=== PATIENT | male | born 1955 | race Caucasian/White ===

== ENCOUNTER 2017-12-23 09:59 | Emergency (ER) | payer OTHER ==
[~2017-12-23] VITALS: Ht 172.7 cm; Wt 80.0 kg
[~2017-12-23 09:59] MED LIST: ACCOLATE10 MG; ADULT ASA81 MG OR; ADULT ASPIRIN E81 MG PO; ASPIRIN EC81 MG PO; ASPIRIN LOW DOS81 M2 PO; BACTRIM DS1 TAB PO; CIPRO XR500 MG PO; CIPROFLOXACN250 MG PO; CIPROFLOXACN500 MG PO; DILAUDID 2MG2 MG/TA1 PO; DILAUDID2 MG PO; FINASTERIDE5 MG PO; FLEXERIL PO; FLONASE NASAL50 MCG; HYDROCO/APAP1 TA9 PO; LIPITOR40 M1 PO; LISINOPRIL10 MG PO; LISINOPRIL20 MG PO; LOPRESSOR25 M1 PO; LOPRESSOR25 MG PO; METOPROL TAR25 MG PO; METRONIDAZOL500 MG PO; MIRALAX3350 N1 PO; MULTI VIT PO; NAPROSYN500 MG PO; OMEPRAZOLE20 MG PO; PRINIVIL10 MG OR; RAPAFLO8 MG PO; SIMVASTATIN40 MG PO; ULTRAM50 M1 PO
[2017-12-23 10:38] LABS: HEMATOCRIT 42.7 % (39.0-50.0); HEMOGLOBIN 14.3 g/dl (14.0-18.0); IMMATURE GRANULOCYTES 0.3 % (0.0-1.0); MEAN CELL VOLUME 90.7 fL CALC (80.0-100.0); MEAN CORPUSCULAR HGB 30.4 pG CALC (26.0-32.0); MEAN CORPUSCULAR HGB CONC 33.5 g/L CALC (32.0-36.0); NEUT# 6.27 thou/uL (1.82-7.42); RED BLOOD COUNT 4.71 mill/uL (4.70-6.10)
[2017-12-23 10:45] LABS: ALBUMIN 4.4 g/dL (3.2-5.0); ALKALINE PHOSPHATASE 66 u/l (38-126); ANION GAP 13 (6-22 (CALC)); BILIRUBIN, TOTAL 1.4 mg/dL (0.0-1.4); BUN 12 mg/dL (8-23); BUN/CREATININE RATIO 13 (12-20 (CALC)); CARBON DIOXIDE 28 mmol/l (22-30); CHLORIDE 99 mmol/l (95-108); CREATININE 0.9 mg/dL (0.7-1.3); GFR > 60 ML/MIN (>=60 (CALC)); GFR FOR AFR.AMER. > 60 ML/MIN (>=60 (CALC)); POTASSIUM 3.8 mmol/l (3.5-5.1); SGOT/AST 23 u/l (19-48); SGPT/ALT 43 u/l (11-66); SODIUM 136 mmol/l (137-146); TOTAL PROTEIN 7.1 g/dL (6.3-8.2)
[2017-12-23 13:37] VITALS: BP 116/78
== END 2017-12-23 13:37 | disposition home or self-care (01) | DRG 310 ==
LOC: ED 09:59
PROVIDERS: Emergency Medicine
DX: R00.2 Palpitations (principal); F17.210 Nicotine dependence, cigarettes, uncomplicated

== ENCOUNTER → 2018-09-02 | Outpatient (REF) | payer OTHER | END | disposition home or self-care (01) | DRG 642 | LOC: LAB 10:04 | PROVIDERS: ATTEND Nurse Practitioner Family | DX: E78.49 Other hyperlipidemia (principal); I10 Essential (primary) hypertension ==

== ENCOUNTER 2020-11-08 15:49 | Emergency (ER) | payer SELFPAY ==
[~2020-11-08 15:49] MED LIST changes: +ALLEGRA60 MG PO; +PEPCID20 MG PO
[2020-11-08 17:18] VITALS: BP 128/79
== END 2020-11-08 17:18 | disposition home or self-care (01) | DRG 151 ==
LOC: ED 15:49
DX: R04.0 Epistaxis (principal); J32.9 Chronic sinusitis, unspecified; I10 Essential (primary) hypertension; K21.9 Gastro-esophageal reflux disease without esophagitis

== ENCOUNTER 2022-02-28 01:42 | Emergency (ER) | payer MEDICARE ==
[~2022-02-28] VITALS: Ht 172.7 cm; Wt 89.5 kg
[2022-02-28] VITALS (9 sets, daily range): BP systolic 129–156; BP diastolic 90–105
[2022-02-28 02:06] LABS: HEMATOCRIT 42.6 % (39.0-50.0); HEMOGLOBIN 14.5 g/dl (14.0-18.0); IMMATURE GRANULOCYTES 0.1 % (0.0-5.0); MEAN CELL VOLUME 88.6 fL CALC (80.0-100.0); MEAN CORPUSCULAR HGB 30.1 pG CALC (26.0-32.0); NEUT# 4.48 thou/uL (1.82-7.42); RED BLOOD COUNT 4.81 mill/uL (4.70-6.10)
[2022-02-28 02:07] LABS: URINE BILIRUBIN - DIPSTICK NEGATIVE (NEGATIVE); URINE BLOOD DIPSTICK NEGATIVE (NEGATIVE); URINE COLOR YELLOW; URINE GLUCOSE - DIPSTICK NEGATIVE (NEGATIVE); URINE KETONE NEGATIVE (NEGATIVE); URINE PH 6.5 (4.5-8.0); URINE PROTEIN - DIPSTICK NEGATIVE (NEG-TRACE); URINE UROBILINOGEN - DIPSTICK 0.2 E.U./dL (0.2)
[2022-02-28 02:08] LABS: URINE LEUK ESTERASE MODERATE (NEGATIVE); URINE NITRITE - DIPSTICK NEGATIVE (Negative)
[2022-02-28 02:15] LABS: URINE BACTERIA FEW hpf; URINE SQUAMOUS EPITHELIAL CELL RARE EPI/hpf (0-FEW); URINE WBC 20-50 WBC/hpf (0-5)
[2022-02-28 02:18] LABS: ALBUMIN 4.6 g/dL (3.2-5.0); ALKALINE PHOSPHATASE 73 u/l (38-126); ANION GAP 15 (6-22 (CALC)); BILIRUBIN, TOTAL 1.1 mg/dL (0.0-1.4); BUN 15 mg/dL (8-23); BUN/CREATININE RATIO 13 (12-20 (CALC)); CARBON DIOXIDE 29 mmol/l (22-30); CHLORIDE 100 mmol/l (95-108); CPK 77 u/l (52-200); CREATININE 1.2 mg/dL (0.7-1.3); GFR FOR AFR.AMER. > 60 ML/MIN (>=60 (CALC)); GFR OTHER RACES > 60 ML/MIN (>=60 (CALC)); MAGNESIUM 1.7 mg/dL (1.6-2.3); POTASSIUM 3.8 mmol/l (3.5-5.1); SGOT/AST 28 u/l (19-48); SODIUM 139 mmol/l (137-146); TOTAL PROTEIN 7.7 g/dL (6.3-8.2)
[2022-02-28 02:30] LABS: MYOGLOBIN 31 ng/mL (0 - 121)
[2022-02-28 02:49] LABS: TSH, 3RD GENERATION 5.55 uIU/mL (0.47 - 4.68)
[2022-02-28] MEDS ORDERED: BACTRIM DS1 TAB PO (03:45)
== END 2022-02-28 05:45 | disposition home or self-care (01) ==
LOC: ED 01:42
PROVIDERS: Family Medicine
DX: N39.0 Urinary tract infection, site not specified (principal); I10 Essential (primary) hypertension; K21.9 Gastro-esophageal reflux disease without esophagitis; Z20.822 Contact with and (suspected) exposure to COVID-19

== ENCOUNTER → 2022-06-24 | Day surgery (SDC) | payer MEDICARE ==
[~2022-06-24] VITALS: Ht 175.3 cm; Wt 86.2 kg
[~2022-06-24] MED LIST changes: +DICYCLOMINE10 MG PO; +TAMSULOSIN0.4 MG PO
[2022-06-24 09:37] VITALS: BP 118/86
== END | disposition home or self-care (01) ==
LOC: ORM 04-15 08:00 → ENDO 07:21 → ORM 08:50 → ENDO 09:50 → ORM 09:50
PROVIDERS: ATTEND Internal Medicine Gastroenterology
PROC: 0DB98ZX Excision of Duodenum, Via Natural or Artificial Opening Endoscopic, Diagnostic (ICD-10-PCS; principal; 2022-06-24)
PROC: 0DB78ZX Excision of Stomach, Pylorus, Via Natural or Artificial Opening Endoscopic, Diagnostic (ICD-10-PCS; 2022-06-24)
PROC: 0DBM8ZX Excision of Descending Colon, Via Natural or Artificial Opening Endoscopic, Diagnostic (ICD-10-PCS; 2022-06-24)
PROC: 0DBN8ZX Excision of Sigmoid Colon, Via Natural or Artificial Opening Endoscopic, Diagnostic (ICD-10-PCS; 2022-06-24)
DX: Z12.11 Encounter for screening for malignant neoplasm of colon (principal); K63.5 Polyp of colon; K57.30 Diverticulosis of large intestine without perforation or abscess without bleeding; K64.8 Other hemorrhoids; K29.50 Unspecified chronic gastritis without bleeding; K44.9 Diaphragmatic hernia without obstruction or gangrene; I10 Essential (primary) hypertension; E78.2 Mixed hyperlipidemia; Z90.49 Acquired absence of other specified parts of digestive tract; Z79.899 Other long term (current) drug therapy

== ENCOUNTER 2023-07-14 07:00 | Day surgery (SDC) | payer MEDICARE ==
[~2023-07-14 07:00] MED LIST changes: +METAMUCIL FIBER PO; +MULTIVITAMIN PO; +[UNRECOGNIZED DRUG - OTHER]
[2023-07-14 08:31] VITALS: BP 107/75
== END 2023-07-14 08:51 | disposition home or self-care (01) ==
LOC: ORM 07:00
PROVIDERS: ATTEND Internal Medicine Gastroenterology
PROC: 0DB58ZX Excision of Esophagus, Via Natural or Artificial Opening Endoscopic, Diagnostic (ICD-10-PCS; principal; 2023-07-14)
PROC: 0DB78ZX Excision of Stomach, Pylorus, Via Natural or Artificial Opening Endoscopic, Diagnostic (ICD-10-PCS; 2023-07-14)
PROC: 0DB68ZX Excision of Stomach, Via Natural or Artificial Opening Endoscopic, Diagnostic (ICD-10-PCS; 2023-07-14)
DX: K25.9 Gastric ulcer, unspecified as acute or chronic, without hemorrhage or perforation (principal); K29.50 Unspecified chronic gastritis without bleeding; K21.9 Gastro-esophageal reflux disease without esophagitis; I10 Essential (primary) hypertension; E78.2 Mixed hyperlipidemia